=== PATIENT | male | born 1945 | race Caucasian/White ===

== ENCOUNTER 2023-03-25 13:51 | Outpatient (RCR) | payer MEDICARE, SELFPAY | END 2023-03-25 23:59 | disposition home or self-care (01) | LOC: CRHB 13:51 | PROVIDERS: ATTENDING PHYSICIAN Surgery Vascular Surgery; FAMILY PHYSICIAN Family Medicine | DX: I70.213 Atherosclerosis of native arteries of extremities with intermittent claudication, bilateral legs (principal) | CPT/HCPCS: 93668 ==

== ENCOUNTER 2023-06-29 06:30 | Day surgery (SDC) | payer MEDICARE, SELFPAY ==
[2023-06-29] VITALS (10 sets, daily range): BP systolic 115–175; BP diastolic 55–94; BMI 24.2
[2023-06-29] MEDS: TYLENOL 1000 MG PO (08:41)
[2023-06-29] MEDS: NORMOSOL-R 1000 IV (08:56)
--- NOTE | 2023-06-29 11:06 | W.IMMPOSTOP ---
Surgical Immed Post Op Note
-
Primary Surgeon: Lolita
Assisting: Heather WEST
Pre-op Diagnosis: Left inguinal hernia
Post-op Diagnosis: Incarcerated left inguinal hernia
Procedure Performed: Robot assisted laparoscopic repair of left inguinal hernia
Anesthesia Type: GETA
Specimen / Cultures: None
Estimated Blood Loss: 3cc
Complications: None immediate
Operative Findings: Indirect defect with sac totally reduced, moderate cord lipoma; XL MID 3D Max
--- NOTE | 2023-06-29 11:07 | OR.RPT ---
Addendum entered and electronically signed by Chris Mchugh MD 06/29/23 11:33:
Correction: moderate cord lipoma identified and reduced. Cord itself not fatty.
Original Note:
Operative Report
Operative Report
Primary Surgeon: Lolita
Assisting: Heather WEST
Pre-op Diagnosis: Left inguinal hernia
Post-op Diagnosis: Incarcerated left inguinal hernia
Procedure Performed: Robot assisted laparoscopic repair of left inguinal hernia
Anesthesia Type: GETA
Specimen / Cultures: None
Estimated Blood Loss: 3cc
Complications: None immediate
Operative Findings: Indirect defect totally reduced, moderate cord lipoma; XL MID 3D Max
Date of surgery: 06/29/23
Indications:� This 78M developed symptomatic left inguinal hernia. Robot assisted laparoscopic repair was planned.
Description of procedure:� The patient was taken to the operating room and positioned into supine position. The patient�s abdomen was prepped and draped in standard sterile fashion. A time-out was completed verifying correct patient, procedure,
site, positioning, and implants and special equipment prior to beginning this procedure.� A stab incision was made in the left upper quadrant, a Veress needle was inserted and proper position was confirmed by aspiration and saline drop test.
Following this, pneumoperitoneum was created with insufflation of carbon dioxide to 12 mmHg. Then a 8mm robotic trocar was inserted above and to the left of the umbilicus. A laparoscope was inserted and the area of initial trocar entry and Veress
needle placement were both inspected and no injuries were found. Two 8mm trocars were then placed lateral to the rectus sheath under direct visualization.
Both inguinal regions were inspected and the median umbilical ligament, medial umbilical ligament, and lateral umbilical fold were identified. Attention was turned to the left groin. The peritoneum was incised transversely above the defect and a
flap was developed in the caudad direction. Sanchez�s ligament was identified ultimately dissected to its junction with the iliac vein and the space of Retzius was developed bluntly.� The dissection was continued inferiorly to the iliopubic tract,
with care taken to avoid injury to the femoral branch of the genitofemoral nerve and the lateral femoral cutaneous nerve. The cord structures were parietalized.
The direct space was inspected and a hernia was not identified. The femoral space was inspected and a defect was not identified.� The indirect space was inspected and a hernia was identified and reduced by gentle traction. The canal was inspected
and a no cord , lipoma was identified, there was a mildly fatty cord.
Extra large left MID 3D max mesh was passed through a trocar. The mesh was placed into the preperitoneal space and moved into position to lay flat and completely cover the direct, indirect, and femoral spaces with overlap beyond the midline. The
mesh was secured into place using 2-0 vicryl suture to Sanchez�s ligament medially and laterally. Care was taken to avoid the inferolateral triangles containing the iliac vessels and genital nerves.
The peritoneal flap was closed over the mesh and secured with 2-0 monocryl stratafix suture in similar positions of safety. A 14g angiocath was used to decompress the preperitoneal space revealing good seal and all mesh in good position without
folding or curling. After ensuring adequate hemostasis, the trocars were removed and the pneumoperitoneum allowed to escape. The trocar incisions were closed at the skin level using 4-0 monocryl and topical skin adhesive. All counts were correct and
the patient tolerated the procedure well and was taken to the postanesthesia care unit in stable condition.
== END 2023-06-29 14:15 | disposition home or self-care (01) ==
LOC: SDS 06:30
PROVIDERS: ATTENDING PHYSICIAN Surgery
DX: K40.90 Unilateral inguinal hernia, without obstruction or gangrene, not specified as recurrent (principal); D17.6 Benign lipomatous neoplasm of spermatic cord
CPT/HCPCS: 49650; C1781

== ENCOUNTER → 2023-12-22 07:51 | Outpatient (REF) | payer MEDICARE, SELFPAY | LOC: DHVS 07:51 | PROVIDERS: ATTENDING PHYSICIAN Surgery Vascular Surgery; FAMILY PHYSICIAN Family Medicine; REFERRING PHYSICIAN Nurse Practitioner Adult Health | DX: I71.43 Infrarenal abdominal aortic aneurysm, without rupture (principal); I77.9 Disorder of arteries and arterioles, unspecified; R91.8 Other nonspecific abnormal finding of lung field | CPT/HCPCS: 71250; 76770; 93922; 93925 ==

== ENCOUNTER → 2023-12-31 04:00 | Outpatient (REF) | payer MEDICARE, SELFPAY | LOC: DHSLP 04:00 | PROVIDERS: ATTENDING PHYSICIAN Internal Medicine Critical Care Medicine; FAMILY PHYSICIAN Family Medicine | DX: G47.33 Obstructive sleep apnea (adult) (pediatric) (principal) | CPT/HCPCS: 95800 ==

== ENCOUNTER → 2024-01-20 06:54 | Outpatient (REF) | payer MEDICARE, SELFPAY ==
[2024-01-20 07:58] LABS: % Basophils 0.6 % (0-2); % Eosinophils 1.7 % (0-6); % Immature Granulocytes 0.5 % (0-0.5); % Lymphocytes 21.4 % (20.5-51.1); % Monocytes 10.9 % (1.7-9.3); % Neutrophils 64.9 % (42.2-75.2); Absolute Eosinophils 0.1 10^3/uL (0-0.7); Absolute Lymphocytes 1.4 10^3/uL (1.2-3.4); Absolute Monocytes 0.7 10^3/uL (0.1-0.6); Absolute Neutrophils 4.2 10^3/uL (1.4-6.5); Hematocrit 45.3 % (39.0-52.0); Hemoglobin 15.4 g/dL (13.0-18.0); Mean Corpuscular Hgb 27.2 pg (27.0-31.0); Mean Corpuscular Volume 79.9 fL (80.0-94.0); Mean Platelet Volume 9.8 fL (7.4-10.4); Nucleated Red Blood Cells % 0 % (-); Platelet Count 308 10^3/uL (130-400); Red Blood Cell Count 5.67 10^6/uL (4.70-6.10); Red Cell Dist. Width 14.4 % (11.5-14.5); White Blood Cell Count 6.5 10^3/uL (4.8-10.8)
[2024-01-20 08:32] LABS: ALT (SGPT) 29 U/L (0-50); AST (SGOT) 39 U/L (17-59); Albumin 4.3 g/dl (3.5-5.0); Alkaline Phosphatase 74 U/L (38-126); Blood Urea Nitrogen 16 mg/dl (9-20); Calcium 9.7 mg/dl (8.4-10.2); Carbon Dioxide 30 mmol/L (22-30); Chloride 98 mmol/L (98-107); Glucose 91 mg/dl (70-99); HDL Cholesterol 67 mg/dl; LDL Cholesterol, Calculated 59 mg/dl; Potassium 5.3 mmol/L (3.5-5.1); Sodium 137 mmol/L (135-145); Total Cholesterol 149 mg/dl (50-199); Total Protein 6.9 g/dl (6.3-8.2); Triglyceride 115 mg/dl (10-149); Very Low Density Lipoprotein 23 mg/dl (0-30); eGFR > 60.00
[2024-01-20 09:00] LABS: PSA, Total - Screen 0.93 ng/ml (0.0-4.0)
== END ==
LOC: REG 06:54
PROVIDERS: ATTENDING PHYSICIAN Family Medicine
DX: R73.02 Impaired glucose tolerance (oral) (principal); E78.5 Hyperlipidemia, unspecified; Z12.5 Encounter for screening for malignant neoplasm of prostate
CPT/HCPCS: 36415; 80053; 80061; 83036; 85025; G0103

== ENCOUNTER → 2024-05-24 14:57 | Outpatient (REF) | payer MEDICARE, SELFPAY | LOC: DHSLP 14:57 | PROVIDERS: ATTENDING PHYSICIAN Internal Medicine Critical Care Medicine; FAMILY PHYSICIAN Family Medicine | DX: G47.33 Obstructive sleep apnea (adult) (pediatric) (principal); R09.02 Hypoxemia | CPT/HCPCS: 95800 ==

== ENCOUNTER → 2024-07-05 08:24 | Outpatient (REF) | payer MEDICARE, SELFPAY | LOC: RAD 08:24 | PROVIDERS: ATTENDING PHYSICIAN Surgery Vascular Surgery | DX: I73.9 Peripheral vascular disease, unspecified (principal) | CPT/HCPCS: 93922; 93925 ==

== ENCOUNTER → 2024-07-13 14:43 | Outpatient (REF) | payer MEDICARE, SELFPAY | LOC: DHSLP 14:43 | PROVIDERS: ATTENDING PHYSICIAN Internal Medicine Critical Care Medicine; FAMILY PHYSICIAN Family Medicine | DX: G47.33 Obstructive sleep apnea (adult) (pediatric) (principal) | CPT/HCPCS: 95800 ==

== ENCOUNTER → 2024-10-16 10:28 | Outpatient (REF) | payer MEDICARE, SELFPAY | LOC: PAVMRI 10:28 | PROVIDERS: ATTENDING PHYSICIAN Student in an Organized Health Care Education/Training Program; FAMILY PHYSICIAN Family Medicine | DX: M25.562 Pain in left knee (principal) | CPT/HCPCS: 72148 ==

== ENCOUNTER → 2024-11-24 11:39 | Outpatient (REF) | payer MEDICARE, SELFPAY | LOC: DHSLP 11:39 | PROVIDERS: ATTENDING PHYSICIAN Internal Medicine Critical Care Medicine; FAMILY PHYSICIAN Family Medicine | DX: G47.33 Obstructive sleep apnea (adult) (pediatric) (principal); R09.02 Hypoxemia | CPT/HCPCS: 95800 ==

== ENCOUNTER → 2024-12-21 13:52 | Outpatient (REF) | payer MEDICARE, SELFPAY | LOC: RAD 13:52 | PROVIDERS: ATTENDING PHYSICIAN Nurse Practitioner Adult Health; FAMILY PHYSICIAN Family Medicine | DX: R91.8 Other nonspecific abnormal finding of lung field (principal) | CPT/HCPCS: 71250 ==

== ENCOUNTER → 2025-01-02 07:59 | Outpatient (REF) | payer MEDICARE, SELFPAY | LOC: RAD 07:59 | PROVIDERS: ATTENDING PHYSICIAN Surgery Vascular Surgery; FAMILY PHYSICIAN Family Medicine | DX: I73.9 Peripheral vascular disease, unspecified (principal); I71.40 Abdominal aortic aneurysm, without rupture, unspecified | CPT/HCPCS: 76770; 93922; 93925 ==

== ENCOUNTER 2025-01-16 06:27 | Day surgery (SDC) | payer MEDICARE, SELFPAY | END 2025-01-16 10:35 | disposition home or self-care (01) | LOC: GI 06:27 | PROVIDERS: ATTENDING PHYSICIAN Internal Medicine; FAMILY PHYSICIAN Family Medicine | DX: Z12.11 Encounter for screening for malignant neoplasm of colon (principal); K64.9 Unspecified hemorrhoids; K57.30 Diverticulosis of large intestine without perforation or abscess without bleeding; K55.20 Angiodysplasia of colon without hemorrhage; D12.3 Benign neoplasm of transverse colon; K63.5 Polyp of colon; Z80.0 Family history of malignant neoplasm of digestive organs | CPT/HCPCS: 45385; 88305 ==

== ENCOUNTER → 2025-02-11 08:42 | Outpatient (REF) | payer MEDICARE, SELFPAY ==
[2025-02-11 09:41] LABS: Hematocrit 45.7 % (39.0-52.0); Hemoglobin 15.0 g/dL (13.0-18.0); Mean Corp Hgb Conc. 32.8 g/dL (33.0-37.0); Mean Corpuscular Volume 80.9 fL (80.0-94.0); Nucleated Red Blood Cells % 0 % (-); Platelet Count 265 10^3/uL (130-400); Red Cell Dist. Width 15.6 % (11.5-14.5)
[2025-02-11 10:07] LABS: ALT (SGPT) 30 U/L (0-50); AST (SGOT) 34 U/L (17-59); Albumin 4.0 g/dl (3.5-5.0); Alkaline Phosphatase 78 U/L (38-126); Blood Urea Nitrogen 15 mg/dl (9-20); Calcium 9.4 mg/dl (8.4-10.2); Carbon Dioxide 32 mmol/L (22-30); Chloride 101 mmol/L (98-107); Glucose 98 mg/dl (70-99); HDL Cholesterol 60 mg/dl; LDL Cholesterol, Calculated 66 mg/dl; Potassium 4.6 mmol/L (3.5-5.1); Sodium 138 mmol/L (135-145); Total Protein 6.7 g/dl (6.3-8.2); Very Low Density Lipoprotein 15 mg/dl (0-30); eGFR > 60.00
[2025-02-11 10:11] LABS: Glycohemoglobin (HgbA1c) 6.2 % (4.0-5.9)
[2025-02-11 10:37] LABS: PSA, Total - Screen 0.90 ng/ml (0.0-4.0)
== END ==
LOC: REG 08:42
PROVIDERS: ATTENDING PHYSICIAN Family Medicine
DX: R73.02 Impaired glucose tolerance (oral) (principal); E78.2 Mixed hyperlipidemia; I10 Essential (primary) hypertension; R35.0 Frequency of micturition; Z12.5 Encounter for screening for malignant neoplasm of prostate
CPT/HCPCS: 36415; 80053; 80061; 83036; 84443; 85025; G0103